=== PATIENT | male | born 1940 | race Hispanic/Latino ===

== ENCOUNTER 2018-07-29 05:56 | Observation (INO) | payer MEDICARE ==
[2018-07-28 10:18] LABS: BASOPHILS % 0.5 % (0.0-1.0); EOSINOPHILS # (AUTO) 0.3 (0.0-0.4); EOSINOPHILS % 5.1 % (0.0-6.0); HEMATOCRIT 42.5 % (38.2-49.6); HEMOGLOBIN 13.9 g/dL (14.0-18.0); LYMPHOCYTES # (AUTO) 1.6 (1.0-3.2); LYMPHOCYTES % 27.9 % (18.0-39.1); MEAN CORPUSCULAR HEMOGLOBIN 28.1 pg (28-32); MEAN CORPUSCULAR HGB CONC 32.7 g/dL (31-35); MEAN CORPUSCULAR VOLUME 85.9 fL (81-99); MONOCYTES # (AUTO) 0.6 (0.2-0.8); MONOCYTES % 9.9 % (4.4-11.3); NEUTROPHILS # (AUTO) 3.2 (2.1-6.9); NEUTROPHILS % 56.3 % (38.7-80.0); PLATELET COUNT 167 x10e3/uL (140-360); RED BLOOD COUNT 4.95 x10e6/uL (4.3-5.7); RED CELL DISTRIBUTION WIDTH 13.4 % (11.7-14.4)
[2018-07-28 10:40] LABS: ANION GAP 11.1 mmol/L (8-16); BLOOD UREA NITROGEN 17 mg/dL (7-26); BUN/CREATININE RATIO 17 (6-25); CARBON DIOXIDE 24 mmol/L (22-29); CHLORIDE 106 mmol/L (98-107); CREATININE, SERUM 0.99 mg/dL (0.72-1.25); EST GLOMERULAR FILTRATION RATE > 60 ML/MIN (60-); GLUCOSE 121 mg/dL (74-118); POTASSIUM 4.1 mmol/L (3.5-5.1); SODIUM 137 mmol/L (136-145)
--- NOTE | 2018-07-28 10:56 | Diagnostic Imaging Report ---
EXAMINATION: PA and lateral views of the chest. COMPARISON: None CLINICAL HISTORY: Preoperative exam for right knee surgery DISCUSSION: The lungs are well-inflated. Linear opacity in the lingula may reflect scar or subsegmental atelectasis. No airspace consolidation, pleural effusion, or pneumothorax. Tortuous thoracic aorta with otherwise normal cardiomediastinal contour. No acute osseous abnormality. IMPRESSION: Minimal lingular scar or subsegmental atelectasis. Otherwise no acute cardiopulmonary abnormality. Signed by: Dr. Cleveland Bullock M.D. on 07/28/2018 10:53 AM
[~2018-07-29] VITALS: Ht 167.6 cm; Wt 90.3 kg
[~2018-07-29 05:56] MED LIST: ASPIRIN81 MG; ATORVASTATIN CA10 MG PO; ATORVASTATIN CA20 MG PO; CARVEDILOL12.5 MG PO; GLIPIZIDE5 MG PO; VASOTEC10 M1
--- OUTSIDE RECORDS SUMMARY | 2018-07-29 05:59 | XMS REPORT ---
Author Author [facility] Address Unknown Phone Unavailable Care Team Providers Care Superintendent Of Generation Name Role Phone SHABNAM PICHARDO Unavailable Unavailable Problems This patient has no known problems. Allergies, Adverse Reactions, Alerts This patient has no known allergies or adverse reactions. Medications This patient has no known medications. Results Test Description Test Time Test Comments Text Results Atomic Results Result Comments CHEST 2 VIEWS 2018-07-28 10:47:[address] [address] Patient Name: KAILEY FERRER MR #: [id number] : 1940 Age/Sex: 77/M Req #: [id number] [facility] Physician: Ordered by: SHABNAM PICHARDO MD Report #: [id number] Location: OR Room/Bed: Procedure: [id number] DX/CHEST 2 VIEWS Exam Date: 07/28/18 Exam Time: 0950 REPORT STATUS: Signed EXAMINATION: PA and lateral views of the chest. JEAN RISON: None CLINICAL HISTORY: Preoperative exam for right knee surgery DISCUSSION: The lungs are well-inflated. Linear opacity in the lingula may reflect scar or subsegmental atelectasis. No airspace consolidation, pleural effusion, or pneumothorax. Tortuous thoracic aorta with otherwise normal cardiomediastinal contour. No acute osseous abnormality. IMPRESSION: Minimal lingular scar or subsegmental atelectasis. Otherwise no acute cardiopulmonary abnormality. Signed by: Dr. Shabnam Ramirez M.D. on 07/28/2018 10:53 AM Dictated By: SHABNAM RAMIREZ MD 105 Transcribed By: ADINA on 07/28/181052 COPY TO: SHABNAM PICHARDO MD
[2018-07-29] MEDS ORDERED: ROPIVACAINE 246.25 MG, EPINEPHRINE HCL 1:1000 1ML 0.5 MG, CLONIDINE HCL 0.08 MG, KETORO... INJ ONE ×5 (06:30)
[2018-07-29] MEDS ORDERED: TRANEXAMIC ACID 1,000 MG/10 ML ML ONE (07:01)
[2018-07-29] MEDS ORDERED: BACITRACIN 50,000 UNIT VIAL ONE (07:01)
[2018-07-29] MEDS ORDERED: VANCOMYCIN HCL 500 MG ONE (07:01)
[2018-07-29] MEDS ORDERED: CELECOXIB 200 MG CAP ONE (07:08)
[2018-07-29] MEDS ORDERED: GABAPENTIN 300 MG CAP ONE (07:09)
[2018-07-29] MEDS ORDERED: SODIUM CHLORIDE 0.9% 500ML 500 ML ONE (07:09)
[2018-07-29] MEDS ORDERED: CEFAZOLIN SOD 1 GM/NS 50ML 100 ML IV ONE (07:09)
[2018-07-29] MEDS ORDERED: DEXAMETHASONE SOD PHOS 10 MG/1 ML VIAL ONE (07:09)
[2018-07-29] MEDS ORDERED: ONDANSETRON HCL INJ 2MG/ML 2ML 2 MG/ML VIAL IV PRN (09:15)
[2018-07-29] MEDS ORDERED: ACETAMINOPHEN 650 MG SUPP PR PRN (09:15)
[2018-07-29] MEDS ORDERED: DOCUSATE SODIUM 100 MG CAP PO PRN (09:15)
[2018-07-29] MEDS ORDERED: DIPHENHYDRAMINE HCL INJ 50 MG/ML VIAL IM/IV PRN (09:15)
[2018-07-29] MEDS ORDERED: KETOROLAC TROMETHAMINE 30 MG/ML VIAL IV PRN (09:15)
[2018-07-29] MEDS ORDERED: HYDROCODONE/APAP 7.5MG-325MG 1 EA TAB PO PRN (09:15)
[2018-07-29] MEDS ORDERED: HYDROCODONE/APAP 5MG-325MG TAB PO PRN (09:15)
[2018-07-29] MEDS ORDERED: PROMETHAZINE HCL (IM) 25 MG/ML VIAL IM PRN (09:15)
--- NOTE | 2018-07-29 10:21 | NUR ---
PATIENT DME AND HOME HEALTH COMPANIES PRE-ARRANGED BY DR. PICHARDO'S OFFICE. PATIENT WITH HOME HEALTH AND DME CONTACT INFORMATION. PATIENT AWARE TO CALL CM IF ANY PROBLEMS OCCUR WITHIN 3 DAYS POST- DISCHARGE. HOME HEALTH EXPLAINED IN DEPTH WITH SERVICES PROVIDED. PATIENT VERBALLY UNDERSTOOD. THE FOLLOWING HOME HEALTH AND DME COMPANY VERIFIED PATIENT IS ON SERVICE WITH THEM: [facility] (P) [phone] (P) [phone] (F) [phone] PER MIRANDA AT [facility], PATIENT WAS NOT ANSWERING THEIR PHONE CALLS SO PATIENT IS NOT ON THE CASE LOAD FOR DISCHARGE. CM CALLED ISIDRO AT DR. IPCHARDO'S OFFICE. PER ISIDRO, PATIENT DAUGHTER IS CONTACTING [facility] TO BE ADDED TO CASE LOAD. CM TO FOLLOW UP. THERAPY SUPPLY HOUSE: (CPM, WALKER WITH WHEELS, COMMODE) (P) [phone] (F) [phone] PATIENT SUPPLIED WALKER BY [facility] AND PER MAURILIO WITH THERAPY SUPPLY HOUSE, PATIENT IS CONFIRMED TO RECEIVE CPM AND 3 IN 1 COMMODE DELIVERED TO HOME.
--- NOTE | 2018-07-29 10:38 | Diagnostic Imaging Report ---
RIGHT KNEE - 2 Images HISTORY: Postop, right knee COMPARISON: None available. FINDINGS: Sensitivity limited by portable technique. Bones: No acute displaced fracture. No aggressive osseous lesion. Joints: Status post total knee arthroplasty. Soft tissues: Air within the joint and adjacent soft tissues, compatible with recent surgery. Dorsal metallic skin emanuel. IMPRESSION: Status post total knee arthroplasty, no evidence of immediate hardware-related complication. Signed by: Dr. Hira Sawyer D.O., M.M.M. on 07/29/2018 10:35 AM
[2018-07-29] MEDS: ACETAMINOPHEN 1000 MG/100 ML IV SCH ×3 (12:00→23:40)
--- NOTE | 2018-07-29 12:20 | Operative Report ---
DATE OF PROCEDURE: 07/29/2018 SURGEON: Cleveland Newman MD LOCOMOTIVE CRANE OPERATOR: Narayan Salgado PA-C. PREOPERATIVE DIAGNOSIS: Osteoarthritis, right knee. POSTOPERATIVE DIAGNOSIS: Osteoarthritis, right knee. PROCEDURE: Right total knee arthroplasty. INDICATIONS: The patient is a 77-year-old gentleman, who has clinic signs and symptoms consistent with osteoarthritis of his right knee. He has been treated with conservative management, but continues to complain of disabling symptoms. The risks and benefits of a knee replacement have been explained. He states he understands and wishes to proceed. He is status post right knee replacement about 10 years ago. He is happy with his progress and his outcome. DESCRIPTION OF PROCEDURE: The patient was brought to the operating room and placed under general anesthetic. He received a regional block, prophylactic antibiotics and tranexamic acid in the holding area. His right lower extremity was prepped and draped in the sterile manner. A preoperative time-out was performed. The extremity was exsanguinated and a proximal tourniquet was inflated to 300 mmHg. An anterior incision with a medial parapatellar arthrotomy was performed. Clear synovial fluid was removed from the joint. Soft tissue releases were performed to bring the knee up into flexion with the patella everted. Meniscal remnants and marginal osteophytes were removed. The cruciate ligaments were released. A Frausto and Nephew Evelyn II posterior stabilized knee system was used throughout the case. An extramedullary cutting guide was used to resect the proximal tibia. The cut was referenced off the more affected lateral compartment. The tibial base plate was a size #7. The central fin punch was impacted and attention was directed towards the distal femur. An intramedullary cutting guide was used to resect the distal femur in 6 degrees of valgus and rotation referencing off a combination of landmarks including Gilma's line, the epicondylar axis and the posterior condyles. The femoral component was also a size #7. The anterior and posterior cuts were made. Trial reductions were performed. An 11-mm ultracongruent tibial insert provided appropriate soft tissue balancing in full extension and 90 degrees of flexion. The patella was resurfaced with 35 mm x 9 mm patellar button. The thickness was checked before and after resurfacing and was right at 26 mm. Patellar tracking was concentric. The trial implants were removed. A 100 mL premixed pericapsular CHRIS injection was placed around the surrounding soft tissue. The knee was thoroughly irrigated with a shower tip pulsatile lavage. The knee had also been periodically irrigated with a spray mixture of diluted polymyxin and vancomycin spray. The components were then cemented into place using a single mix of high viscosity Simplex cement preloaded with antibiotics. Care was taken to remove extravasated cement. The wound was further irrigated while the cement cured. The arthrotomy was then closed with interrupted #1 Ethibond. The knee was put through flexion and extension to ensure a secure closure. The skin was closed with subcuticular Vicryl and emanuel. A sterile Aquacel bandage was applied. An Evin wrap was applied. The patient was extubated and transported to the recovery room in stable condition. Blood loss was minimal. All needle and sponge counts were correct. Cleveland Newman MD DR/SARBJIT /[id number]
--- NOTE | 2018-07-29 15:43 | NUR ---
RECEIVED REPORT FROM MELODY IN PACU. AWAITING FOR PT TO ARRIVE TO UNIT
[2018-07-29 16:00] VITALS: BP 133/72
--- NOTE | 2018-07-29 16:00 | NUR ---
RECEIVED PT TO FLOOR AA0X3, PT DENIES PAIN A THIS TIME . RIGHT LOWER LEG IS DRESSED DRY AND INTACT. PT HAS COMPRESSIONS ON LEFT LEG. A FOOT PUMPS BILATERALLY. PT IS ON REG DIET. HAS AN IV TO THE RIGHT HAND 20 G PATENT AND DRY. WILL CONTINUE TO CARE AT THIS TIME. SIDE RAILSX2, BED WHEELS LOCKED , CALL LIGHT IS WITHIN EASY REACH, INSTRUCTED TO CALL FOR ASSISTANCE IF NEEDED
[2018-07-29 16:20] VITALS: BP 133/72
[2018-07-29] MEDS: SODIUM CHLORIDE 0.9% 1000ML 1,000 ML IV SCH ×2 (16:43→19:07)
[2018-07-29] MEDS: CEFAZOLIN SOD 1 GM/NS 50ML 50 ML IV SCH ×2 (16:44→23:00)
[2018-07-29] MEDS ORDERED: CELECOXIB 100 MG CAP PO SCH (17:00)
[2018-07-29] MEDS: ASPIRIN 325 MG TAB PO SCH (17:27)
[2018-07-29] MEDS: CELECOXIB 200 MG CAP PO SCH (17:27)
[2018-07-29] MEDS ORDERED: SEVOFLURANE INHAL SOLN 250 ML PEN BTL ONE (17:33)
[2018-07-29] MEDS ORDERED: PROPOFOL IV EMULSION 10 MG/ML 20 ML VIAL ONE (17:33)
[2018-07-29] MEDS ORDERED: ONDANSETRON HCL INJ 2MG/ML 2ML 2 MG/ML VIAL ONE (17:33)
[2018-07-29] MEDS ORDERED: DEXAMETHASONE SOD PHOS INJ 4 MG/ML VIAL ONE (17:33)
[2018-07-29] MEDS ORDERED: LIDOCAINE 2%/ EPINEPHRINE 20ML MDV ONE (18:13)
[2018-07-29] MEDS ORDERED: ROPIVACAINE 0.5% 5 MG/ML 30 ML SDV ONE (18:13)
--- NOTE | 2018-07-29 18:15 | NUR ---
SPOKE WITH MEAGAN REGARDING HOME MED RENEWAL . ORDERS FOR ACHS AND INSULIN GIVEN.
[2018-07-29] MEDS ORDERED: DEXTROSE 50% SYRINGE 50 ML IV PRN (18:30)
[2018-07-29] MEDS ORDERED: FENTANYL CITRATE/PF 100MCG/2 ML INJ ONE (18:35)
[2018-07-29] MEDS ORDERED: MIDAZOLAM HCL 2 MG/2 ML VIAL ONE (18:35)
[2018-07-29] MEDS ORDERED: KETAMINE HCL INJ 50 MG/ML 10 ML VIAL ONE (18:35)
[2018-07-29 20:00] VITALS: BP 155/71
[2018-07-29] MEDS ORDERED: ATORVASTATIN 10 MG TAB PO SCH (21:00)
[2018-07-29] MEDS ORDERED: ZOLPIDEM TARTRATE 5 MG TAB PO PRN (21:00)
[2018-07-29] MEDS: INSULIN LISPRO 100 UNIT/1 ML 3ML VIAL SQ SCH (21:00)
[2018-07-30] VITALS: BP 128/65
[2018-07-30 04:00] VITALS: BP 122/64
[2018-07-30] MEDS: SODIUM CHLORIDE 0.9% 1000ML 1,000 ML IV SCH (05:07)
--- NOTE | 2018-07-30 05:33 | NUR ---
PLACED ON CPM 60 AT THIS TIME.
[2018-07-30] MEDS: ACETAMINOPHEN 1000 MG/100 ML IV SCH (06:00)
[2018-07-30] MEDS: CEFAZOLIN SOD 1 GM/NS 50ML 50 ML IV SCH (06:24)
[2018-07-30 06:25] LABS: HEMATOCRIT 35.8 % (38.2-49.6)
[2018-07-30 06:35] LABS: HEMOGLOBIN 11.9 g/dL (14.0-18.0)
[2018-07-30] MEDS ORDERED: GLIPIZIDE 5 MG TAB PO SCH (07:30)
[2018-07-30] MEDS: INSULIN LISPRO 100 UNIT/1 ML 3ML VIAL SQ SCH ×2 (07:30→11:52)
[2018-07-30 08:15] VITALS: BP 137/73
[2018-07-30] MEDS: ASPIRIN 325 MG TAB PO SCH (08:55)
[2018-07-30] MEDS: CELECOXIB 200 MG CAP PO SCH (08:55)
[2018-07-30] MEDS ORDERED: ASPIRIN325 MG PO (08:56)
[2018-07-30] MEDS ORDERED: CARVEDILOL 12.5 MG TAB PO SCH (09:00)
[2018-07-30] MEDS ORDERED: ENALAPRIL MALEATE 10 MG TAB PO SCH (09:00)
[2018-07-30] MEDS ORDERED: ACETAMINOPHEN 1000 MG/100 ML IV PRN (09:15)
[2018-07-30 11:10] VITALS: BP 137/73
--- NOTE | 2018-07-30 11:41 | Consultation ---
DATE OF CONSULTATION: REASON FOR CONSULTATION: Postoperative medical management. HISTORY OF PRESENT ILLNESS: The patient is a gentleman, who is status post total knee arthroplasty of the right knee for end-stage osteoarthritis. He is doing well postoperatively with minimal pain. REVIEW OF SYSTEMS: He denies any fever, chills, nausea, vomiting, headache, shortness of breath, or dizziness. PAST MEDICAL HISTORY: Significant for diabetes, hypertension, hyperlipidemia. MEDICATIONS: See MAR. ALLERGIES: NONE. SOCIAL HISTORY: Nonsmoker, nondrinker. FAMILY HISTORY: Hypertension. PHYSICAL EXAMINATION: VITAL SIGNS: Temperature 96.3, pulse 68, blood pressure 128/65, sats 94% on room air. GENERAL: No apparent distress. NECK: Supple. LUNGS: Clear to auscultation bilaterally. CARDIOVASCULAR: Regular rate and rhythm. ABDOMEN: Good bowel sounds. Soft and nontender. EXTREMITIES: No clubbing or cyanosis. NEUROLOGIC: Nonfocal. ASSESSMENT AND PLAN: 1. Anemia. Check a CBC. 2. Right knee pain. We will continue with postoperative therapy and pain control. 3. Diabetes. Continue with his medications and monitoring his sugars. 4. Hypertension. Continue with his home medication. 5. Hyperlipidemia. Continue with his Lipitor. Please see hospital chart for full details. MD HEAVEN Jaime/SARBJIT /[id number]
[2018-07-30 12:01] VITALS: BP 119/57
== END 2018-07-30 12:22 | disposition home or self-care (01) ==
LOC: OR 05:56 → PACU V 09:09 → MED/SURG 15:58
PROVIDERS: ADMIT Specialist; ATTEND Specialist
DX: M17.11 Unilateral primary osteoarthritis, right knee (principal); Z96.652 Presence of left artificial knee joint; E11.9 Type 2 diabetes mellitus without complications; E78.00 Pure hypercholesterolemia, unspecified; I10 Essential (primary) hypertension; Z79.82 Long term (current) use of aspirin; Z79.84 Long term (current) use of oral hypoglycemic drugs; E87.6 Hypokalemia; D64.9 Anemia, unspecified; Z01.810 Encounter for preprocedural cardiovascular examination; Z01.812 Encounter for preprocedural laboratory examination; Z01.811 Encounter for preprocedural respiratory examination
CPT/HCPCS: 27447; 36415 ×3; 71046; 73560; 80048; 82948 ×2; 85014; 85018; 85025; 86850; 86900; 86920; 93005; 97110; 97116; 97161; 97530; C1713; G0378 ×2; J0131; J0171; J0690 ×2; J1100 ×2; J1885; J2001; J2250; J2405; J2704; J2795; J3370; J7030; J7040